=== PATIENT | male | born 1960 | race Caucasian/White ===

== ENCOUNTER 2016-10-27 14:37 | Inpatient (IN) | payer BC, OTHER ==
[~2016-10-27] VITALS: Ht 160 cm; Wt 80.0 kg
[2016-10-27] MEDS ORDERED: NITROGLYCERIN 2% 1 GM OINT PKT TD STA (20:00)
[2016-10-27] MEDS ORDERED: ASPIRIN 325 MG TAB PO STA (20:00)
[2016-10-27 20:16] LABS: BASOPHILS % 0.6 % (0.0-2.0); EOSINOPHILS # 0.1 10^3/ul (0.0-0.5); EOSINOPHILS % 1.6 % (0.0-7.0); HEMATOCRIT 43.6 % (42.0-52.0); HEMOGLOBIN 15.2 g/dl (14.0-18.0); LYMPHOCYTES # 2.5 10^3/ul (0.8-2.9); LYMPHOCYTES % 36.5 % (15.0-51.0); MEAN CORPUSCULAR HEMOGLOBIN 31.8 pg (29.0-33.0); MEAN CORPUSCULAR HGB CONC 34.9 g/dl (32.0-37.0); MEAN CORPUSCULAR VOLUME 91.2 fl (82.0-101.0); MEAN PLATELET VOLUME 10.6 fl (7.4-10.4); MONOCYTE # 0.6 10^3/ul (0.3-0.9); MONOCYTES % 8.8 % (0.0-11.0); NEUTROPHILS % 51.8 % (39.0-77.0); PLATELET COUNT 216 10^3/UL (140-415); RED BLOOD COUNT 4.78 10^6/ul (4.70-6.10); RED CELL DISTRIBUTION WIDTH 12.2 % (11.5-14.5); WHITE BLOOD COUNT 6.7 10^3/ul (4.8-10.8)
[2016-10-27 20:34] LABS: ANION GAP 15 (8-16); BLOOD UREA NITROGEN 10 mg/dl (7-20); CALCIUM 9.3 mg/dl (8.4-10.2); CARBON DIOXIDE 26 mmol/L (21-31); CHLORIDE 106 mmol/L (97-110); CREATININE 0.68 mg/dl (0.61-1.24); GLUCOSE 130 mg/dl (70-220); POTASSIUM 3.6 mmol/L (3.5-5.1); SODIUM 143 mmol/L (135-144)
[2016-10-27 20:58] LABS: TROPONIN-I < 0.012 ng/ml (0.00-0.12)
--- NOTE | 2016-10-27 21:24 | RADRPT ---
PROCEDURE: XR Chest. CLINICAL INDICATION: Chest Pain. TECHNIQUE: Single frontal view of the chest was obtained COMPARISON: None FINDINGS: The heart and mediastinum are within normal limits. The lungs are clear. There is no pleural effusion or pneumothorax. The bones and soft tissue show no acute change. IMPRESSION: No definite abnormalities are identified. RPTAT:AAJJ David Hodges Physician Date Time Electronically viewed and signed by David Hodges Physician on 10/27/2016 21:23 /
--- NOTE | 2016-10-27 22:41 | ERA ---
ER Documentation Chief Complaint Date/Time DATE: 10/27/16 TIME: 22:38 Chief Complaint chest pressure since this am HPI This a 55-year-old male who states she is having chest pressure off and on all morning long described as a pressure sensation without radiation, he also has shortness of breath and some diaphoresis. He says he has no prior cardiac history and denies any medical problems. Patient says the pain went away for a few hours this afternoon and then returned again this evening. He says the pain was a severe chest crushing sensation but currently has none. ROS All systems reviewed and are negative except as per history of present illness. Medications Home Meds No Active Prescriptions or Reported Meds Allergies Allergies: Coded Allergies: No Known Allergy (Unverified , 10/27/16) PMhx/Soc Medical and Surgical Hx: pt denies Medical Hx, pt denies Surgical Hx Hx Alcohol Use: No Hx Substance Use: No Hx Tobacco Use: No Smoking Status: Never smoker FmHx Family History: No coronary disease Physical Exam Vitals Vital Signs Date Time Temp Pulse Resp B/P Pulse Ox O2 Delivery O2 Flow Rate FiO2 10/27/16 19:57 98.0 71 18 130/98 100 Room Air 10/27/16 19:57 Nasal Cannula 10/27/16 14:40 98.1 89 18 155/99 99 Physical Exam Const: Well-developed, well-nourished Head: Atraumatic, normocephalic Eyes: Normal Conjunctiva, PERRLA, EOMI, normal sclera, no nystagmus ENT: Normal External Ears, Nose and Mouth, moist mucus membranes. Neck: Full range of motion. No meningismus, no lymphadenopathy. Resp: Clear to auscultation bilaterally, no wheezing, rhonchi, rales Cardio: Regular rate and rhythm, no murmurs, S1 S2 present Abd: Soft, non tender x 4, non distended. Normal bowel sounds, no guarding or rebound, no pulsitile abdominal masses or bruits Skin: No petechiae or rashes, no ecchymosis , no maculopapular rash Back: No midline or flank tenderness Ext: No cyanosis, or edema, FROM x 4, normal inspection, neurovascularly intact x 4 Neur: Awake and alert, STR 5/5 x 4, sensation intact x 4, no focal findings, cerebellum intact Psych: Normal Mood and Affect Result Diagram: 10/27/16200410/27/162004 Results 24 hrs Laboratory Tests Test 10/27/16 20:05 White Blood Count 6.710^3/ul Red Blood Count 4.7810^6/ul Hemoglobin 15.2g/dl Hematocrit 43.6% Mean Corpuscular Volume 91.2fl Mean Corpuscular Hemoglobin 31.8pg Mean Corpuscular Hemoglobin Concent 34.9g/dl Red Cell Distribution Width 12.2% Platelet Count 93954^3/UL Mean Platelet Volume 10.6fl Neutrophils % 51.8% Lymphocytes % 36.5% Monocytes % 8.8% Eosinophils % 1.6% Basophils % 0.6% Nucleated Red Blood Cells % 0.0/100WBC Neutrophils # (Manual) 3.510^3/ul Lymphocytes # 2.510^3/ul Monocytes # 0.610^3/ul Eosinophils # 0.110^3/ul Basophils # 0.010^3/ul Nucleated Red Blood Cells # 0.010^3/ul Sodium Level 143mmol/L Potassium Level 3.6mmol/L Chloride Level 106mmol/L Carbon Dioxide Level 26mmol/L Anion Gap 15 Blood Urea Nitrogen 10mg/dl Creatinine 0.68mg/dl Glucose Level 130mg/dl Calcium Level 9.3mg/dl Troponin I < 0.012ng/ml Current Medications Medications (Trade) Dose Ordered Sig/Radha Route PRN Reason Start Time Stop Time Status Last Admin Dose Admin Aspirin (Aspirin) 325 mg ONCE STAT PO 10/27/16 20:00 10/27/16 20:04 DC 10/27/16 20:44 Nitroglycerin (Nitroglycerin 2% Oint) 1 inch ONCE STAT TD 10/27/16 20:00 10/27/16 20:04 DC 10/27/16 20:45 Procedures/MDM PROCEDURE: XR Chest. CLINICAL INDICATION: Chest Pain. TECHNIQUE: Single frontal view of the chest was obtained COMPARISON: None FINDINGS: The heart and mediastinum are within normal limits. The lungs are clear. There is no pleural effusion or pneumothorax. The bones and soft tissue show no acute change. IMPRESSION: No definite abnormalities are identified. RPTAT:AAJJ David Hodges Physician Date Time Electronically viewed and signed by David Hodges Physician on 10/27/2016 21: 23 [facility]/ CC: ZANDER FLORES DO EKG: Rate/Rhythm: Normal Sinus Rhythm,NL intervals QRS, ST, QT: NORMAL LA, QRS, QT] Impression: NORMAL EKG Patient's symptoms are concerning for cardiac cause will require inpatient workup and continuous monitoring. Further w/u for ischemia, arrhythmia, PE or dissection will be deferred to the inpatient team. Accepting Care Team: Current data and ongoing care discussed. Time: Time of admission Primary Provider: [XOXOXO] Consulting: [XOXOXO] Outstanding Data: none Departure Diagnosis: Primary Impression: Chest pain Qualified Code: R07.9 - Chest pain, unspecified type Condition: Stable ZANDER FLORES DO Oct 27, 2016 22:41
[2016-10-27] MEDS ORDERED: ONDANSETRON 4 MG INJ IV PRN (23:00)
[2016-10-27] MEDS ORDERED: ACETAMINOPHEN 325 MG TAB PO PRN (23:00)
[2016-10-27 23:34] VITALS: TEMP 98.5
[2016-10-28] VITALS (10 sets, daily range): BP systolic 108–133; BP diastolic 75–88; PULSE 54–95; RESP 18–20; Ht 160 cm; Wt 80.0 kg
[2016-10-28] MEDS ORDERED: morphine 2 MG INJ IV PRN (00:30)
[2016-10-28] MEDS ORDERED: NITROGLYCERIN (SL) 0.4 MG TAB SL PRN (00:30)
[2016-10-28 01:50] LABS: CREATINE KINASE 79 IU/L (23-200)
[2016-10-28 02:08] LABS: CK-MB 1.66 ng/ml (0.0-2.4); TROPONIN-I < 0.012 ng/ml (0.00-0.12)
[2016-10-28] MEDS: AL HYDROX/MG HYDROX/SIMETH 30 ML CUP PO SCH ×3 (08:41→17:00)
[2016-10-28] MEDS ORDERED: METOPROLOL 25 MG TAB PO SCH (09:00)
[2016-10-28 09:08] LABS: CREATINE KINASE 69 IU/L (23-200)
[2016-10-28 09:22] LABS: TROPONIN-I < 0.012 ng/ml (0.00-0.12)
--- NOTE | 2016-10-28 10:43 | CONS ---
Date/Time of Note Date/Time of Note DATE: 10/28/16 TIME: 10:36 Assessment/Plan Assessment/Plan Chief Complaint/Hosp Course A/P: 1. CHEST PAIN SYNDROME: WI was ruled out. 2. ? GERD/ gastritis 3. r/o dyslipidemia will check echo. pt was given the option of monitoring today and to be scheduled for stress test in am in hospital but he wants to go home today I have scheduled him in office for stress test tomorrow at 2:45 pm will start ASA and protonix Thank you. MARY DIAMOND MD FAC Problems: Consultation Date/Type/Reason Admit Date/Time Oct 27, 2016 at 22:55 Type of Consultation: CARDIOLOGY Reason for Consultation CHEST PAIN Referring Provider: KENYA SQUIRES MD Hx of Present Illness CC: Chest pain HPI: Dear Dr Squires thank you for this referral / This is a pleasant 55 year old man with no past cardiac history who presented to ER with c/o chest pain. pt states that yesterday AM he started having chest burning and pain at rest, lasted hours, anteriorly and not related to exertion. pt's chest pain has resolved now and troponin have been normal. d/w and Dr Squires. pt normally walks fast for about 2 miles with no chest pain or pressure. His chest pain today resolved with antiacid. MEDS NONE social NO T/E/D and lives with family. family hx no early CAD PMH: none allergy NKDA ROS: MILD Knee pain. he denies all others. Social History Smoking Status: Never smoker Exam/Review of Systems Vital Signs Vitals Vital Signs Date Time Temp Pulse Resp B/P Pulse Ox O2 Delivery O2 Flow Rate FiO2 10/28/16 08:36 54 10/28/16 07:40 98.3 18 115/76 95 10/28/16 01:00 Room Air Intake and Output 10/27/16 10/27/16 10/28/16 15:00 23:00 07:00 Intake Total 400 ml Output Total 600 ml Balance -200 ml Exam GEN: no acute distress HEENT: NC AT MIL NECK NO Stridor or JVD CV RRR PULM; CTA B/L no wheezing. GI: soft NT ND. Ext no C/C/E Neuro: awake and alert. OX 3 nonfocal. psych calm and pleasant ECG NSR normal . Results Result Diagram: 10/27/16200410/27/162004 Results 24 hrs Laboratory Tests Test 10/27/16 20:05 10/28/16 00:44 10/28/16 07:39 White Blood Count 6.7 Red Blood Count 4.78 Hemoglobin 15.2 Hematocrit 43.6 Mean Corpuscular Volume 91.2 Mean Corpuscular Hemoglobin 31.8 Mean Corpuscular Hemoglobin Concent 34.9 Red Cell Distribution Width 12.2 Platelet Count 216 Mean Platelet Volume 10.6 H Neutrophils % 51.8 Lymphocytes % 36.5 Monocytes % 8.8 Eosinophils % 1.6 Basophils % 0.6 Nucleated Red Blood Cells % 0.0 Neutrophils # (Manual) 3.5 Lymphocytes # 2.5 Monocytes # 0.6 Eosinophils # 0.1 Basophils # 0.0 Nucleated Red Blood Cells # 0.0 Sodium Level 143 Potassium Level 3.6 Chloride Level 106 Carbon Dioxide Level 26 Anion Gap 15 Blood Urea Nitrogen 10 Creatinine 0.68 Glucose Level 130 Calcium Level 9.3 Troponin I < 0.012 < 0.012 < 0.012 Creatine Kinase 79 69 Creatine Kinase Index 2.1 1.7 Creatinine Kinase MB (Mass) 1.66 1.20 Medications Medications Current Medications Al Hydrox/Mg Hydrox/Simethicone (Mag-Al Plus) 30 ml QID PO Last administered on 10/28/16t 08:41; Admin Dose 30 ML; Start 10/28/16 at 09:00 Metoprolol Tartrate (Lopressor) 12.5 mg BID PO ; Start 10/28/16 at 09:00 Nitroglycerin (Nitroglycerin (Sl Tab) 0.4 Mg) 1 tab Q5M PRN SL CHEST PAIN; Start 10/28/16 at 00:30 Morphine Sulfate (morphine) 2 mg Q2H PRN IV PAIN LEVEL 4-6; Start 10/28/16 at 00 :30 MARY DIAMOND MD Oct 28, 2016 10:43
[2016-10-28] MEDS ORDERED: ASPIRIN (EC) 81 MG TAB PO SCH (11:00)
[2016-10-28] MEDS ORDERED: PANTOPRAZOLE (EC) 40 MG TAB PO SCH (11:00)
--- NOTE | 2016-10-28 14:37 | PDOCDIS ---
Discharge Instructions CONDITION Patient Condition: Good HOME CARE INSTRUCTIONS: Diet Instructions: RegularSpecial Diet: regular diet ACTIVITY: Activity Restrictions: No Restrictions FOLLOW UP/APPOINTMENTS Follow-up Plan Follow up scheduled with Dr. Jaylon Gary tomorrow 10/29/2016 . Patient to call office to confirm appointment time. REFERRALS Referring Provider: KENYA OGDEN MD, LINDA MD Oct 28, 2016 14:37
--- NOTE | 2016-10-28 18:18 | DS ---
Date/Time of Note Date/Time of Note DATE: 10/28/16 TIME: 18:11 Discharge Summary Admission/Discharge Info Admit Date/Time Oct 27, 2016 at 22:55 Discharge Date/Time October 28, 2016 Discharge Diagnosis Atypical chest pain non cardiac in origin. Patient Condition: Stable Consults Cardiology consutl with Dr. Jaylon Gary Procedures Serial Troponin and ECG unremarkable with normal results Hx of Present Illness 55 year old man present to the [facility] with complaint of chest pain lasting for a few hours. Non radiating. No diaphoresis. No vomiting. Hospital Course Patient was evaluated for acute cardiac syndrome. ID ruled out. atient was seen by Dr. Gary who planned for in patient stress echo tomorrow ( because was unable to be performed today). Patient did not want to stay the extra night and will see Dr. Gary 10/29/2016 at 2:45pm. Patient is chest pain free. Home Meds No Active Prescriptions or Reported Meds Follow-up Plan Echo stress test as outpatient with Dr. Gary. Primary Care Provider Jan Griggs MD Pending Labs Laboratory Tests Test 10/27/16 20:05 10/28/16 00:44 10/28/16 07:39 White Blood Count 6.710^3/ul (4.8-10.8) Red Blood Count 4.7810^6/ul (4.70-6.10) Hemoglobin 15.2g/dl (14.0-18.0) Hematocrit 43.6% (42.0-52.0) Mean Corpuscular Volume 91.2fl (82.0-101.0) Mean Corpuscular Hemoglobin 31.8pg (29.0-33.0) Mean Corpuscular Hemoglobin Concent 34.9g/dl (32.0-37.0) Red Cell Distribution Width 12.2% (11.5-14.5) Platelet Count 68583^3/UL (140-415) Mean Platelet Volume 10.6fl (7.4-10.4) Neutrophils % 51.8% (39.0-77.0) Lymphocytes % 36.5% (15.0-51.0) Monocytes % 8.8% (0.0-11.0) Eosinophils % 1.6% (0.0-7.0) Basophils % 0.6% (0.0-2.0) Nucleated Red Blood Cells % 0.0/100WBC (0.0-0.0) Neutrophils # (Manual) 3.510^3/ul (1.7-7.5) Lymphocytes # 2.510^3/ul (0.8-2.9) Monocytes # 0.610^3/ul (0.3-0.9) Eosinophils # 0.110^3/ul (0.0-0.5) Basophils # 0.010^3/ul (0.0-0.1) Nucleated Red Blood Cells # 0.010^3/ul (0.0-0.0) Sodium Level 143mmol/L (135-144) Potassium Level 3.6mmol/L (3.5-5.1) Chloride Level 106mmol/L (97-110) Carbon Dioxide Level 26mmol/L (21-31) Anion Gap 15 (8-16) Blood Urea Nitrogen 10mg/dl (7-20) Creatinine 0.68mg/dl (0.61-1.24) Glucose Level 130mg/dl (70-220) Calcium Level 9.3mg/dl (8.4-10.2) Troponin I < 0.012ng/ml (0.00-0.12) < 0.012ng/ml (0.00-0.12) < 0.012ng/ml (0.00-0.12) Creatine Kinase 79IU/L (23-200) 69IU/L (23-200) Creatine Kinase Index 2.1 1.7 Creatinine Kinase MB (Mass) 1.66ng/ml (0.0-2.4) 1.20ng/ml (0.0-2.4) KENYA OGDEN MD Oct 28, 2016 18:18
--- NOTE | 2016-10-28 18:25 | HP ---
Date/Time of Note Date/Time of Note DATE: 10/28/16 TIME: 18:18 Assessment/Plan VTE Prophylaxis VTE Prophylaxis Intervention: ambulation Lines/Catheters IV [facility] Type [facility]from [facility] [place] [employer] line still needed: No Urinary Cath still in place: No Assessment/Plan Chief Complaint/Hosp Course Patient was evaluated for acute cardiac syndrome. NC ruled out. Patient was seen by Dr. Gary who planned for in patient stress echo tomorrow ( because was unable to be performed today). Patient did not want to stay the extra night and will see Dr. Gary 10/29/2016 at 2:45pm. Patient is chest pain free. Problems: (1) Chest pain Status: Acute Comment: atypical in nature. NC ruled out. Qualifiers: Chest pain type: unspecified Qualified Code: R07.9 - Chest pain, unspecified type Assessment/Plan Clinically stable. Chest pain free at this time. Scheduled for echo stress test tomorrow with Dr. Gary. HPI/ROS Admit Date/Time Admit Date/Time Oct 27, 2016 at 22:55 Hx of Present Illness 55 year old man present to the [facility] with complaint of chest pain lasting for a few hours. Non radiating. No diaphoresis. No vomiting. He has in the past had a sensation similar to this at night with a feeling of "desperation". Patient was recently seen by PMD on 10/19/2016. Work up at that time was unremarkable. ROS Constitutional: no complaints Eyes: no complaints ENT: no complaints Respiratory: no complaints Cardiovascular: other (as per HPI) Gastrointestinal: no complaints Genitourinary: no complaints Musculoskeletal: no complaints Skin: no complaints Neurologic: no complaints Endocrine: no complaints Lymphatic: no complaints Psychological: no complaints Immunologic: no complaints PMH/Family/Social Past Medical History Medical History: other (nephrolitiasis) Past Surgical History Past Surgical Hx: no surgical history Family History Significant Family History: no pertinent family hx Social History Alcohol Use: none Smoking Status: Never smoker Drug Use: none Exam/Review of Systems Vital Signs Vitals Vital Signs Date Time Temp Pulse Resp B/P Pulse Ox O2 Delivery O2 Flow Rate FiO2 10/28/16 16:11 62 10/28/16 16:03 98.0 19 126/84 98 10/28/16 01:00 Room Air Intake and Output 9/07/0810/27/16 10/28/16 15:00 23:00 07:00 Intake Total 400 ml Output Total 600 ml Balance -200 ml Exam Constitutional: oriented, well developed Psych: no complaints Head: normocephalic Eyes: EOMI, PERRL, nl conjunctiva ENMT: mucosa pink and moist, nl lips & teeth Neck: non-tender, supple Respiratory: clear to auscultation, normal air movement Cardiovascular: nl pulses, regular rate and rhythm Gastrointestinal: soft Musculoskeletal: nl extremities to inspection Extremities: normal pulses Neurological: nl mental status, nl speech, nl strength Skin: nl turgor Lymph: nl lymph nodes Labs Result Diagram: 10/27/16200410/27/162004 Medications Medications Current Medications Al Hydrox/Mg Hydrox/Simethicone (Mag-Al Plus) 30 ml QID PO Last administered on 10/28/16 12:37; Admin Dose 30 ML; Start 10/28/16 at 09:00 Metoprolol Tartrate (Lopressor) 12.5 mg BID PO ; Start 10/28/16 at 09:00 Nitroglycerin (Nitroglycerin (Sl Tab) 0.4 Mg) 1 tab Q5M PRN SL CHEST PAIN; Start 10/28/16 at 00:30 Morphine Sulfate (morphine) 2 mg Q2H PRN IV PAIN LEVEL 4-6; Start 10/28/16 at 00 :30 Aspirin (Halfprin) 81 mg DAILY PO Last administered on 10/28/16 12:00; Admin Dose 81 MG; Start 10/28/16 at 11:00 Pantoprazole (Protonix Tab) 40 mg DAILY@06 PO Last administered on 10/28/16 12: 00; Admin Dose 40 MG; Start 10/28/16 at 11:00 KENYA OGDEN MD Oct 28, 2016 18:24
--- NOTE | 2016-10-30 19:12 | RADRPT ---
Echocardiogram Report Patient Name: TIEN REYNA Gender: Male Date: 1960 Study Date: 28-Oct-2016 Greaser And Oiler: Gayatri Gong [facility] Location: [id number] Ref. Physician: MARY GARY Quality: Good Procedures: Transthoracic echocardiogram with complete 2D, M-Mode, and doppler examination. Indications: Chest Pain. 2D/M Mode Doppler Measurement Value Normal Ranges Measurement Value Normal Ranges LVIDd 2D 3.9 3.5 - 5.6 cm AV Peak Keo 1.5 m/sec LVIDs 2D 2.6 2.1 - 4.1 cm AV Peak PG 9.0 mmHg FS 2D 33.8 % LVOT Peak Keo 1.1 m/sec LVPWd 2D 1.3 0.6 - 1.1 cm LVOT Peak PG 5.0 mmHg IVSd 2D 1.3 0.6 - 1.1 cm MV E Peak Keo 1.0 m/sec IVS/LVPW 2D 1.0 MV A Peak Keo 0.9 m/sec AoR Diam 2D 3.0 2.0 - 3.7 cm MV E/A 1.1 LA/Ao 2D 1 0 - 1 MV Decel Time 232 msec EDV 2D 61.2 cm3 MV E/A 1.1 ESV 2D 17.8 cm3 TR Peak Keo 2.5 m/sec LA Dimen 2D 3.6 2.3 - 4.0 cm TR Peak PG 25.0 mmHg RVSP 35.0 mmHg Findings Left Ventricle: Normal left ventricular systolic function. Normal left ventricular cavity size. Mild concentric left ventricular hypertrophy. Ejection fraction is visually estimated at 65 %. Right Ventricle: Normal right ventricular size. Normal right ventricular systolic function. Left Atrium: The left atrium is normal in size. Right Atrium: The right atrium is normal in size. Mitral Valve: Normal appearance and function of the mitral valve with trace physiologic regurgitation. Aortic Valve: Normal appearance of the aortic valve. No significant aortic stenosis or insufficiency. Tricuspid Valve: Normal appearance of the tricuspid valve. Estimated peak PA systolic pressure 28 mmHg. There is trace tricuspid regurgitation. Pulmonic Valve: Normal pulmonic valve appearance. Pericardium: Normal pericardium with no significant pericardial effusion. Aorta: Normal aortic root. IVC: Normal size and normal respiratory collapse consistent with normal right atrial pressure. Conclusions 1.Normal left ventricular systolic function. Normal left ventricular cavity size. Mild concentric left ventricular hypertrophy. Ejection fraction is visually estimated at 65 %. 2.Normal appearance and function of the mitral valve with trace physiologic regurgitation. 3.Normal appearance of the aortic valve. No significant aortic stenosis or insufficiency. 4.Normal appearance of the tricuspid valve. Estimated peak PA systolic pressure 28 mmHg. There is trace tricuspid regurgitation. Electronically Signed By: Mary Gary 30-Oct-2016 19:11:15 -0700 Patient Name: TIEN REYNA Study Date: 28-Oct-2016 [id number]
== END 2016-10-28 18:37 | disposition home or self-care (01) | DRG 313 ==
LOC: E/R 14:37 → MS4 22:55
PROVIDERS: ADMIT Internal Medicine; ATTEND Internal Medicine
DX: R07.89 Other chest pain (principal); E78.5 Hyperlipidemia, unspecified; K21.9 Gastro-esophageal reflux disease without esophagitis
CPT/HCPCS: 71010; 80048; 82550; 82553; 84484; 85025; 93005; 93306